=== PATIENT | male | born 1970 | race Two or more races ===

== ENCOUNTER 2016-05-09 09:02 | Emergency (ER) | payer OTHER ==
[2016-05-09 09:39] LABS: BASOPHIL % 0.5 % (0-2); PLATELET COUNT 321 x10^3mcL (130-400); RED CELL DISTRIBUTION WIDTH 12.9 % (11.5-14.5)
[2016-05-09 09:49] LABS: CALCIUM 9.6 mg/dL (8.5-10.1); CARBON DIOXIDE 31.2 mmol/L (21-32); CHLORIDE SERUM 101 mmol/L (98-107); CREATININE SERUM 0.9 mg/dL (0.7-1.3); GFR1 > 60 mL/min; GLUCOSE SERUM 105 mg/dL (74-106); POTASSIUM SERUM 4.1 mmol/L (3.5-5.1); SODIUM SERUM 139 mmol/L (136-145)
[2016-05-09 09:53] LABS: ALBUMIN 4.5 g/dL (3.4-5.0); ALKALINE PHOSPHATASE 55 U/L (46-116); ALT/SGPT 38 U/L (16-63); AMYLASE 86 U/L (25-115); AST/SGOT 20 U/L (15-37); BILIRUBIN TOTAL 0.8 mg/dL (0.20-1.00); LIPASE 164 IU/L (73-393); TOTAL PROTEIN, SERUM 7.8 g/dL (6.4-8.2)
[2016-05-09 10:27] LABS: microscopic required? YES; urine erythrocyte TRACE (NEGATIVE)
[2016-05-09 12:24] VITALS: BP 110/78
== END 2016-05-09 12:24 | disposition home or self-care (01) ==
LOC: ED 09:02
PROVIDERS: Specialist
DX: N23 Unspecified renal colic (principal); C81.90 Hodgkin lymphoma, unspecified, unspecified site
CPT/HCPCS: 83880; J2405; J3010; Q9967